=== PATIENT | female | born 2005 | race Hispanic/Latino ===

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

== ENCOUNTER 2023-01-17 12:47 | Emergency (ER) | payer MEDICAID ==
[~2023-01-17] VITALS: Ht 157.5 cm; Wt 81.6 kg
[2023-01-17 12:48] VITALS: BP 132/75
[2023-01-17] MEDS ORDERED: IBUPROFEN 100 MG/5 ML SUSP UDCUP ONE (13:43)
[2023-01-17] MEDS ORDERED: IBUPROFEN 100 MG/5 ML SUSP UDCUP PO ONE (14:00)
[2023-01-17] MEDS ORDERED: KETOROLAC 30MG VIAL (30MG/ML) IM ONE (15:00)
[2023-01-17] MEDS ORDERED: KETOROLAC 30MG VIAL (30MG/ML) ONE (15:09)
== END 2023-01-17 15:18 | disposition home or self-care (01) ==
LOC: EDH 12:47
DX: R51.9 Headache, unspecified (principal); Z90.49 Acquired absence of other specified parts of digestive tract; Z79.1 Long term (current) use of non-steroidal anti-inflammatories (NSAID); Y04.0XXA Assault by unarmed brawl or fight, initial encounter; Y93.89 Activity, other specified; Y92.9 Unspecified place or not applicable; Y99.8 Other external cause status
CPT/HCPCS: 99285; 70486; 96372; J1885

== ENCOUNTER 2024-12-01 13:16 | Emergency (ER) | payer BC, MEDICAID ==
[~2024-12-01] VITALS: Ht 157.5 cm; Wt 90.7 kg
[2024-12-01] MEDS: FAMOTIDINE 20MG VIAL IV ONE (13:59)
[2024-12-01] MEDS: ondanSETRON 4MG INJ IVP ONE (13:59)
[2024-12-01] MEDS: 0.9%NACL 1000ML 1,000 ML IV ONE (14:00)
[2024-12-01 14:07] LABS: BASOPHILS # (AUTO) 0.03 K/uL (0.00-0.20); BASOPHILS % (AUTO) 0.4 % (0.0-5.0); EOSINOPHILS # (AUTO) 0.08 K/uL (0.00-0.70); HEMATOCRIT 36.1 % (36-48); IMMATURE GRANULOCYTE ABSOLUTE 0.02 K/uL (0-1); LYMPHOCYTES # (AUTO) 1.9 K/uL (1.0-4.8); LYMPHOCYTES % (AUTO) 24.1 % (21.0-51.0); MEAN CORPUSCULAR HEMOGLOBIN 29.8 pg (27.0-33.0); MEAN CORPUSCULAR HGB CONC 33.2 g/dL (32.0-36.0); MEAN CORPUSCULAR VOLUME 89.6 fL (80-100); MONOCYTES # (AUTO) 0.7 K/uL (0.1-1.0); MONOCYTES % (AUTO) 9.4 % (3.0-13.0); NEUTROPHILS % (AUTO) 64.8 % (40.0-77.0); PLATELET COUNT (AUTO) 199 K/uL (130-400); RED BLOOD CELL COUNT(AUTO) 4.03 MIL/uL (4.00-5.50); RED CELL DISTRIBUTION WIDTH 12.9 % (11.0-15.5); WHITE BLOOD COUNT (AUTO) 7.7 K/uL (4.8-10.8)
[2024-12-01 14:18] LABS: CREATININE 0.8 mg/dL (0.5-1.0); POTASSIUM 3.7 mmol/L (3.5-5.1)
[2024-12-01 14:22] LABS: ALBUMIN 3.6 g/dL (3.5-5.0); BILIRUBIN,DIRECT 0.1 mg/dL (0.0-0.3); BILIRUBIN,TOTAL 0.8 mg/dL (0.2-1.0); TOTAL PROTEIN, SERUM 7.4 g/dL (6.0-8.3)
[2024-12-01 14:34] LABS: APPEARANCE,URINE CLEAR (CLEAR); BILIRUBIN,URINE NEGATIVE (NEGATIVE); COLOR,URINE LIGHT-YELLOW (YELLOW); GLUCOSE, URINE (UA) NEGATIVE (NEGATIVE); KETONES,URINE NEGATIVE (NEGATIVE); LEUKOCYTE ESTERASE ,URINE NEGATIVE Leu/uL (NEGATIVE); NITRATE,URINE NEGATIVE (NEGATIVE); OCCULT BLOOD,URINE NEGATIVE (NEGATIVE); PH,URINE 5.5 (5.0-8.0); PROTEIN,URINE NEGATIVE (NEGATIVE); UROBILINOGEN,URINE 0.2 mg/dL (0.2-1.0)
[2024-12-01 14:58] LABS: ADD UA MICROSCOPIC NO
[2024-12-01] MEDS: ketOROlac 15MG/ML VIAL (15MG/ML) IV ONE (14:58)
[2024-12-01 15:29] VITALS: BP 105/50; PULSE 63; RESP 16; TEMP 98.1; O2SAT 98
--- NOTE | 2024-12-01 16:10 | HMCIMG ---
CT ABDOMEN/PELVIS W/O CONTRAST HISTORY: Pain COMPARISON: None TECHNIQUE: Multiple sequential axial images of the abdomen and pelvis were obtained from the dome of the diaphragm through symphysis pubis. Patient was not given contrast through intravenous route. Oral contrast was not given. FINDINGS: No pleural effusion is seen bilaterally. There is no evidence of parenchymal disease or pulmonary nodule of the visualized lower lungs. Degenerative changes of the thoracolumbar spine are present. The heart is not enlarged. Post cholecystectomy changes are seen. The liver, spleen, adrenal glands and pancreas are unremarkable. There is no evidence of hydronephrosis bilaterally. No evidence of renal stone is seen. Fecal material is seen in the colon. There are normal size retroperitoneal and mesenteric lymph nodes. No ascites is seen. No CT evidence of acute appendicitis is seen. Pelvic sidewalls are symmetric bilaterally. Bladder is well distended without wall thickening. IMPRESSION: 1. No acute findings. CT was performed with one or more following dose reduction techniques: automated exposure control, adjustment of the mA and kv according to patient's size, or use of a iterative reconstruction technique.
[2024-12-01] MEDS ORDERED: FAMO-136 PO (16:35)
[2024-12-01] MEDS ORDERED: ONDA-243 PO (16:35)
--- NOTE | 2024-12-01 16:35 | ERN ---
General Chief Complaint: Abdominal Pain Stated Complaint: ABDOMINAL PAIN,NAUSEA,MULTIPLE COMPLAINTS Time Seen by MD: 13:22 Time Seen by Midlevel: 13:22 Source: patient History of Present Illness Initial Comments Patient is a 18-year-old female with a past medical history of gastritis presenting to the emergency department with midepigastric abdominal pain that has been intermittent in nature for the last two weeks. Patient has already been seen by her primary care doctor 2 times. She was pending results of her blood work at this time. Denies being . Denies any surgical history or past medical history. Associated symptoms include nausea and vomiting. Allergies: Coded Allergies: No Known Allergies (Unverified Allergy, Unknown, 11/12/21) Home Meds Active Scripts Famotidine (Pepcid) 20 Mg Tablet, 1 TAB PO BID for 30 Days, #60 TAB 0 Refills Prov:PANFILO ARMSTRONG 12/01/24 Ondansetron (Ondansetron Odt) 4 Mg Tab.rapdis, 4 MG PO BID for 7 Days, #14 TAB Prov:PANFILO ARMSTRONG 12/01/24 Past Medical History Past Medical History: No Pertinent History Past Surgical History: Tonsillectomy, Cholecystectomy Female( History) LMP: Nov 04, 2024 : 1 Para: 0 Aborts: 1 ROS Dictation CONSTITUTIONAL: Negative except for HPI HEAD/FACE: Negative except for HPI EENT: Negative except for HPI RESPIRATORY: Negative except for HPI GASTROINTESTINAL/ABDOMINAL: Negative except for HPI GENITOURINARY: Negative except for HPI MUSCULOSKELETAL: Negative except for HPI INTEGUMENTARY: Negative except for HPI NEUROLOGICAL/PSYCH: Negative except for HPI HEMATOLOGIC/LYMPHATIC: Negative except for HPI All Systems Negative, Except as noted above. 13 point review of systems assessed and all negative except for above. Physical Exam Physical Exam Dictation Vital Signs reviewed General Appearance: Alert, oriented x 3, no acute distress, well developed, nourished. Head and Face: non-traumatic. Eyes: PERRL, pink conjunctivas, eyelid no trauma, anterior chamber with arcus se nilis. Ears: Pinnas intact and no signs of trauma or erythema ear canals clear and no discharge TM no erythema Nose: No discharge, no bleeding. Oropharynx: Mouth normal, tongue pink, pharynx clear,no erythema, tonsils no exudates, no abscesses noted, mucous membrane moist Neck: Supple, non-tender, no thyromegaly, no masses, no JVD, no bruits Breast:Deferred Chest:No tenderness, no crepitus, no paradoxical movement, no retractions Lungs:Clear, well-ventilated, symmetric, no rales, no wheezing, no rhonchi, no stridor, good breath sounds bilaterally Heart: Regular rate, regular rhythm, no murmur, no gallops Vascular: no peripheral edema, Abdomen: Soft, positive bowel sounds, nondistended, no guarding, Epigastric abdominal tenderness, no rebound, no masses no hepatomegaly, no splenomegaly, no Lambert's sign, no hernias. Rectal: Deferred Genital: Deferred Neurological: Normal speech, motor function intact, sensory function intact Musculoskeletal: Neck nontender, full range of motion, back nontender, full range of motion, Extremities: nontender, full range of motion Skin: Color pink, dry, no turgor, no rash, no lacerations, no abrasions, no contusions. Lymphatic: Deferred Results Laboratory and Microbiology Lab and Micro Result Laboratory Tests Test 12/01/24 13:59 12/01/24 14:22 White Blood Count 7.7 K/uL (4.8-10.8) Red Blood Count 4.03 MIL/uL (4.00-5.50) Hemoglobin 12.0 g/dL (12.0-16.0) Hematocrit 36.1 % (36-48) Mean Corpuscular Volume 89.6 fL (80-100) Mean Corpuscular Hemoglobin 29.8 pg (27.0-33.0) Mean Corpuscular Hemoglobin Concent 33.2 g/dL (32.0-36.0) Red Cell Distribution Width 12.9 % (11.0-15.5) Platelet Count 199 K/uL (130-400) Mean Platelet Volume 11.2 fL (7.5-10.5) H Immature Granulocyte % (Auto) 0.3 % (0-1) Neutrophils (%) (Auto) 64.8 % (40.0-77.0) Lymphocytes (%) (Auto) 24.1 % (21.0-51.0) Monocytes (%) (Auto) 9.4 % (3.0-13.0) Eosinophils (%) (Auto) 1.0 % (0.0-8.0) Basophils (%) (Auto) 0.4 % (0.0-5.0) Neutrophils # (Auto) 5.0 K/uL (1.8-7.7) Lymphocytes # (Auto) 1.9 K/uL (1.0-4.8) Monocytes # (Auto) 0.7 K/uL (0.1-1.0) Eosinophils # (Auto) 0.08 K/uL (0.00-0.70) Basophils # (Auto) 0.03 K/uL (0.00-0.20) Absolute Immature Granulocyte (auto 0.02 K/uL (0-1) Nucleated Red Blood Cells 0.0 % (0.0-0.19) Sodium Level 137 mmol/L (136-145) Potassium Level 3.7 mmol/L (3.5-5.1) Chloride Level 101 mmol/L (101-111) Carbon Dioxide Level 27 mmol/L (21-32) Blood Urea Nitrogen 11 mg/dL (7-18) Creatinine 0.8 mg/dL (0.5-1.0) Glomerular Filtration Rate Calc 108 mL/min (>90) Random Glucose 112 mg/dL (70-105) H Total Calcium 8.5 mg/dL (8.5-10.1) Total Bilirubin 0.8 mg/dL (0.2-1.0) Direct Bilirubin 0.1 mg/dL (0.0-0.3) Aspartate Amino Transf (AST/SGOT) 17 U/L (10-37) Alanine Aminotransferase (ALT/SGPT) 23 U/L (12-78) Alkaline Phosphatase 87 U/L (50-136) Total Protein 7.4 g/dL (6.0-8.3) Albumin 3.6 g/dL (3.5-5.0) Lipase 30 U/L (16-77) Serum Test, Qualitative NEGATIVE (NEGATIVE) Urine Color LIGHT-YELLOW (YELLOW) Urine Appearance CLEAR (CLEAR) Urine pH 5.5 (5.0-8.0) Urine Specific [place] 1.009 (1.001-1.031) Urine Protein NEGATIVE mg/dL (NEGATIVE) Urine Glucose (UA) NEGATIVE mg/dL (NEGATIVE) Urine Ketones NEGATIVE mg/dL (NEGATIVE) Urine Occult Blood NEGATIVE (NEGATIVE) Urine Nitrate NEGATIVE (NEGATIVE) Urine Bilirubin NEGATIVE mg/dL (NEGATIVE) Urine Urobilinogen 0.2 mg/dL (0.2-1.0) Urine Leukocyte Esterase NEGATIVE Reggie/uL Labs Reviewed?: Yes MDM MDM: Differential diagnosis: Gastritis, gastroenteritis, pancreatitis, acute cholecystitis There are no social concerns with this patient. Prescription drug management Prescriptions will include: Zofran and Pepcid Medical management and examination interpretation discussions were had by me with other qualified healthcare professionals as indicated for the patient's care. ED Course Orders Procedure Category Date Status Time Cbc With Differential LAB 12/01/24 Complete 13:28 Basic Metabolic Panel LAB 12/01/24 Complete 13:28 Hepatic Function Panel LAB 12/01/24 Complete 13:28 Lipase LAB 12/01/24 Complete 13:28 Testing, LAB 12/01/24 Complete Serum Hcg 13:28 Urinalysis Profile LAB 12/01/24 Complete 13:28 0.9%Nacl 1000ml (Ns PHA 12/01/24 Complete 1000ml) 13:30 Ondansetron 4mg Inj PHA 12/01/24 Complete (Zofran 4mg Inj) 13:30 Famotidine 20mg Vial PHA 12/01/24 Complete (Pepcid 20mg Vial) 13:30 Ketorolac PHA 12/01/24 Complete Tromethamine 15mg/Ml 15:00 Ct Abdomen/Pelvis W/O CT 12/01/24 Resulted Contrast 14:49 Current Medications Medications (Trade) Dose Ordered Sig/Dee Dee Route PRN Reason Start Time Stop Time Status Last Admin Dose Admin Famotidine (Pepcid 20mg Vial) 20 mg ONCE ONCE IV 12/01/24 13:30 12/01/24 13:31 DC 12/01/24 13:59 Ketorolac Tromethamine (toRADol) 15 mg ONCE ONCE IV 12/01/24 15:00 12/01/24 15:01 DC 12/01/24 14:58 Ondansetron HCl (zoFRAN 4MG INJ) 4 mg ONCE ONCE IVP 12/01/24 13:30 12/01/24 13:31 DC 12/01/24 13:59 Sodium Chloride 1,000 ml @ 0 mls/hr ONCE ONCE IV 12/01/24 13:30 12/01/24 13:31 DC 12/01/24 14:00 Vital Signs Date Time Temp Pulse Resp B/P (MAP) Pulse Ox O2 Delivery O2 Flow Rate FiO2 12/01/24 15:29 98.1 63 16 105/50 98 Room Air* 0 21 12/01/24 13:28 98.1 66 20 144/76 99 Room Air 0 12/01/24 13:28 98.1 66 20 144/76 99 Room Air* 0 21 [facility] [address] [place] [address] IMAGING REPORT Signed PATIENT: RADHA KENNY MR#: [id number] : 2005 SEX: F AGE: 18 LOCATION: [facility] ORDER [id number] STATUS: REG ER REPORT#: [id number] SERVICE 1449 REASON: persistent mid epigastric abdominal pain ORDERING PHYSICIAN: PANFILO ARMSTRONG PROCEDURE: ABD PEL WO - CT ABDOMEN/PELVIS W/O CONTRAST CT ABDOMEN/PELVIS W/O CONTRAST HISTORY: Pain COMPARISON: None TECHNIQUE: Multiple sequential axial images of the abdomen and pelvis were obtained from the dome of the diaphragm through symphysis pubis. Patient was not given contrast through intravenous route. Oral contrast was not given. FINDINGS: No pleural effusion is seen bilaterally. There is no evidence of parenchymal disease or pulmonary nodule of the visualized lower lungs. Degenerative changes of the thoracolumbar spine are present. The heart is not enlarged. Post cholecystectomy changes are seen. The liver, spleen, adrenal glands and pancreas are unremarkable. There is no evidence of hydronephrosis bilaterally. No evidence of renal stone is seen. Fecal material is seen in the colon. There are normal size retroperitoneal and mesenteric lymph nodes. No ascites is seen. No CT evidence of acute appendicitis is seen. Pelvic sidewalls are symmetric bilaterally. Bladder is well distended without wall thickening. IMPRESSION: 1. No acute findings. CT was performed with one or more following dose reduction techniques: automated exposure control, adjustment of the mA and kv according to patient's size, or use of a iterative reconstruction technique. DICTATED BY: HERRERA JOYCE MD DATE: 12/01/24 1605 ELECTRONICALLY SIGNED BY: HERRERA JOYCE MD DATE: 12/01/24 1610 DX & DISP Disposition: Discharge Departure Impression: Primary Impression: Gastritis Condition: Stable Scripts Famotidine (Pepcid) 20 Mg Tablet 1 TAB PO BID for 30 Days, #60 TAB 0 Refills Prov: PANFILO ARMSTRONG 12/01/24 Ondansetron (Ondansetron Odt) 4 Mg Tab.rapdis 4 MG PO BID for 7 Days, #14 TAB Prov: PANFILO ARMSTRONG 12/01/24 Additional Instructions: Your blood work today is unremarkable. Your CT scan your CT scan of the abdomen and pelvis does not show any acute finding. Please follow up with your primary care doctor for further evaluation. Return to the ER for any new or worsening symptoms Referrals: SELF,REFERRAL (PCP) Time of Disposition: 16:25 I have reviewed the case, and I agree with, Diagnosis and Plan I performed the substantive portion of the visit. I have reviewed and personally made and approve the management plan that is documented in the note by myself or the AMY. I acknowledge for responsibility for the patient's management plan. PANFILO ARMSTRONG Dec 01, 2024 16:35
== END 2024-12-01 17:09 | disposition home or self-care (01) ==
LOC: EDH 13:16
DX: K29.70 Gastritis, unspecified, without bleeding (principal); Z90.49 Acquired absence of other specified parts of digestive tract; Z90.89 Acquired absence of other organs; Z79.899 Other long term (current) drug therapy
CPT/HCPCS: 99284; 74176; 96374; 96375; 80076; 80048; 84703; 83690; 85025; 81003; 36415; J1885; J3490; J7030; J2405

== ENCOUNTER 2025-08-14 07:31 | Day surgery (SDC) | payer BC ==
[2025-08-10 11:59] LABS: IMMATURE GRANULOCYTE ABSOLUTE 0.02 K/uL (0-1); NUCLEATED RED BLOOD CELLS 0.0 % (0.0-0.19); PLATELET COUNT (AUTO) 205 K/uL (130-400); RED BLOOD CELL COUNT(AUTO) 3.97 MIL/uL (4.00-5.50); RED CELL DISTRIBUTION WIDTH 12.5 % (11.0-15.5); WHITE BLOOD COUNT (AUTO) 6.1 K/uL (4.8-10.8)
[2025-08-10 12:05] VITALS: BP 120/67; PULSE 64; RESP 13; TEMP 97.3
[2025-08-10 12:06] LABS: CREATININE 0.7 mg/dL (0.5-1.0); GLOMERULAR FILTR. RATE CALC 126.0 mL/min (>90); GLUCOSE,RANDOM 95.0 mg/dL (70-105); SODIUM SERUM 138.0 mmol/L (136-145); UREA NITROGEN, BLOOD 17.0 mg/dL (7-18)
[~2025-08-14] VITALS: Ht 157.5 cm; Wt 89.6 kg
[2025-08-14] VITALS (16 sets, daily range): BP systolic 102–144; BP diastolic 48–87; PULSE 64–107; RESP 12–17; TEMP 97.3–97.9
[~2025-08-14 07:31] MED LIST: IBUP-2482 PO
[2025-08-14] MEDS ORDERED: LACTATED RINGERS 1000ML 1,000 ML IV ONE (07:49)
[2025-08-14] MEDS ORDERED: LIDOCAINE PF 100MG/5ML (2%) SYRINGE 5ML ONE (08:01)
[2025-08-14] MEDS ORDERED: NEOSTIGMINE METHYLSULFATE 1MG/ML IV ONE (08:01)
[2025-08-14] MEDS ORDERED: MIDAZOLAM HCL 1 MG/ML 2ML VIAL ONE (08:26)
[2025-08-14] MEDS ORDERED: SUGAMMADEX SODIUM 200 MG/2 ML VIAL IV ONE (08:31)
[2025-08-14] MEDS ORDERED: FAMOTIDINE 20MG VIAL IV ONE (08:31)
[2025-08-14] MEDS ORDERED: GLYCOPYRROLATE 0.2 MG/ML 5 ML VIAL ONE (09:48)
[2025-08-14] MEDS ORDERED: HYDR-4060 PO (10:36)
--- NOTE | 2025-08-14 10:54 | OP ---
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 The patient had injuries to the lateral collateral ligament which was treated with a conservative treatment the patient continue home plating of pain in the ankle in a located posteriorly thought to be initially Achilles tendonitis which did not responded to therapy and a steroid injection. After further examination it was noted that the patient had an impingement syndrome of the posterior ankle and it was determined that very likely the os trigonum was the source of the pain. The patient has been admitted for excision of the os trigonum. Procedure understood, risks, benefits and possible complications and the patient agreed signed the consent form] DESCRIPTION OF PROCEDURE: [After adequate general anesthesia was achieved the patient was placed in the prone position previous cement of the tourniquet in the proximal thigh. The right lower extremity was prepped and draped in the usual manner, the extremity elevated and the tourniquet was inflated to 250 mmHg. With the use of the C-arm we passed a very small K-wire just medial to the Achilles tendon border that was directed to the os trigonum. In this manner we were able to make a smaller incision centered on this marker in the lateral side of the Achilles tendon. The incision through the skin was then carried down through the subcutaneous tissue while maintaining retraction. Immediately we reached the posterior retinaculum and this was opened exposing the muscle belly of the flexor hallucis longus while retractors were applied to separate the Achilles tendon and the peroneal tendons including the sural nerve. The os trigonum was easily palpated and it was loose and the most proximal end close to the talus was erythematous the soft tissue surrounding the os trigonum was then dissected to free the bone which was later removed. This exposed the posterior aspect of the calcaneus and talus and the removal of trigonum opened the joint between the two bones. The talus had a little extra spike medially and these age was excised with the use of an osteotome. The flexor hallucis longus was followed down to the entry canal into the plantar aspect and noted that it was freely moving with no abnormalities. Then we proceeded to open the small amount of capsule left between the talus and the posterior tibia removing the soft tissue to avoid any impingement and then we proceeded to copiously irrigate the wound with antibiotic solution, deflating then the tourniquet. Compression of the area was provided with packing of the wound and after several minutes we removed the packing and minimal bleeders in the fat tissue was then cauterized. Exploration revealed no residue of any material. We then proceeded to close the fatty tissue with the use of number 2-0 Vicryl simple stitches previous infiltration of the area with Marcaine 0.25% without epinephrine. Then the subcutaneous tissue was closed with 2-0 Vicryl inverted stitches and the skin was closed with 3-0 Monocryl subcuticularly. The wound was then covered with Dermabond and a saline dressing was then applied over it. Then an Armando bandage was applied to the ankle and the patient was turned in the supine position, awakened and extubated and the patient was placed in a cam walker boot. There were no complications in the procedure. A specimen was sent to the pathology.] JOLIE PEREZ MD Aug 14, 2025 10:54
--- NOTE | 2025-08-14 12:00 | NUR ---
BOTH PT AND BOYFRIEND GIVEN VERBAL AND WRITTEN DISCHARGE INSTRUCTIONS IV REMOVED SITE ASYMPTOMATIC. IV REMOVED SITE ASYMPTOMATIC. PT TAKEN OUT VIA WHEELCHAIR BOYFRIEND DRIVING
--- NOTE | 2025-08-14 16:26 | HMCIMG ---
Fluoroscopic support for right ankle surgery Impression: Fluoroscopic support /[place]
== END 2025-08-14 12:10 | disposition home or self-care (01) ==
LOC: DAH 07:31
PROVIDERS: ATTEND Orthopaedic Surgery
DX: Q74.2 Other congenital malformations of lower limb(s), including pelvic girdle (principal); M25.571 Pain in right ankle and joints of right foot
CPT/HCPCS: 36415; 73610; 80048; 81025; 84703; 85025; 88304; 88311; J0690; J2003; J2250; J2405; J2704; J2710; J3010; J3490; J7120; A4213; A4215; A4216; A4221; A4222; A4223; A4649; A4663; A4930; A5120; A6450; J0665; J1308